=== PATIENT | female | born 2000 | race Caucasian/White ===

== ENCOUNTER 2021-07-08 10:33 | Emergency (ER) | payer OTHER, SELFPAY ==
[2021-07-08] VITALS (9 sets, daily range): BP systolic 96–119; BP diastolic 55–64; PULSE 88–108; RESP 16; TEMP 37.1; O2SAT 99–100
--- NOTE | 2021-07-08 11:30 | PC.NURSE ---
Pt reports that she is 12 weeks and has been nauseous for the past several weeks with the last week being significantly worse. She reports that she has been vomiting approximately 5 times per day. Reports that she has tried Reglan, Phenergan and Zofran. The Zofran does help the majority of the time but it has been less effective this past week. Denies vaginal bleeding. Does report intermittent cramping.
--- NOTE | 2021-07-08 11:46 | ED.GENADULT ---
HPI - General Adult General Chief complaint: Nausea/Vomiting/Diarrhea Stated complaint: vomiting/dizzy/12 weeks Time Seen by Provider: 07/08/21 10:47 Source: patient Mode of arrival: ambulatory Limitations: no limitations History of Present Illness HPI narrative: Patient presented to the ED with frequent vomiting since last night. Approximately 12-15 times so far. Patient denies any fever, chills, diarrhea or abdominal pain. Patient is 12 weeks and has been having intermittent vomiting since the beginning of , the vomiting since last night is more than usual. Patient denies vaginal bleeding or discharge. Related Data Home Medications Medication Instructions Recorded Confirmed metoclopramide HCl [Reglan] 10 mg PO Q6H PRN 07/08/21 ondansetron [Zofran ODT] 4 mg PO Q6H PRN 07/08/21 prenat.vits,sola,[id number] 1 tablet PO DAILY 07/08/21 [ Vitamin] promethazine [Phenergan] 12.5 mg PO QID PRN 07/08/21 Allergies Allergy/AdvReac Type Severity Reaction Status Date / Time Penicillins Allergy Unknown Unknown Verified 07/08/21 12:40 amoxicillin Allergy Unknown Verified 07/08/21 12:41 Review of Systems Review of Systems: CONSTITUTIONAL: Denies fever, chills, or sweats. EYES: Denies visual changes, redness, or discharge. ENT: Denies rhinorrhea, congestion, sore throat, or otalgia. CARDIOVASCULAR: Denies chest pain, palpitations, or edema. RESPIRATORY: Denies cough or dyspnea. GASTROINTESTINAL: Denies abdominal pain, nausea, vomiting, or diarrhea. GENITOURINARY: Denies dysuria or hematuria. SKIN: Denies rash or itching. MUSCULOSKELETAL: Denies back pain, joint pain, or myalgia. NEUROLOGIC: Denies headache, numbness, or weakness. PSYCHIATRIC: Denies anxiety or depression. Exam Narrative: General appearance: Well-developed, well-nourished Skin: Normal color Head: Normocephalic, nontraumatic Eyes: Clear conjunctiva ENT: Oropharynx normal, ears normal, nose normal Neck: Supple, nontender Chest and respiratory: Airway patent, no respiratory distress, no accessory muscle use Heart: Regular rate/rhythm Abdomen: Soft, nontender, no organomegaly, quiet bowel sounds Vascular: Normal peripheral pulses, normal capillary refill. 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 Symptoms improved almost 90%. Work-up did not show any sign of dehydration or electrolyte imbalance. Hyperemesis gravidarum is my concern. Patient to continue Zofran at home and to contact her EXPLORATION GEOLOGIST for evaluation. Vital Signs Vital signs: Vital Signs Temperature 37.1 C 07/08/21 10:43 Pulse Rate 108 H 07/08/21 10:43 Respiratory Rate 16 07/08/21 10:43 Blood Pressure 119/64 07/08/21 10:43 Pulse Oximetry 100 07/08/21 10:43 Temperature 37.1 C 07/08/21 10:43 Pulse Rate 88 07/08/21 11:52 Respiratory Rate 16 07/08/21 11:52 Blood Pressure 96/60 L 07/08/21 13:35 Pulse Oximetry 100 07/08/21 13:35 Medical Decision Making MDM Narrative Medical decision making narrative: Hyperemesis gravidarum, urinary tract infection Differential Diagnosis Differential Diagnosis: Hyperemesis gravidarum, urinary tract infection, electrolyte imbalance, dehydration Vital Signs Vital Signs: Vital Signs Temperature 37.1 C 07/08/21 10:43 Pulse Rate 108 H 07/08/21 10:43 Respiratory Rate 16 07/08/21 10:43 Blood Pressure 119/64 07/08/21 10:43 Pulse Oximetry 100 07/08/21 10:43 Temperature 37.1 C 07/08/21 10:43 Puls
[2021-07-08 11:52] LABS: Basophils Percent Auto 0.4 % (0.2-1.2); Eosinophils Absolute Auto 0.1 K/mm3 (0-0.3); Eosinophils Percent Auto 0.9 % (0-4.4); Hematocrit 35.1 % (37.0-47.0); Immature Granulocyte Absolute 0.01 K/mm3 (0.00-0.031); Immature Granulocyte Percent A 0.1 % (0-0.5); Lymphocytes Absolute Auto 1.34 K/mm3 (0.9-3.2); Mean Corpuscular HGB Conc 34.2 g/dl (32-36); Mean Corpuscular Hemoglobin 31.5 pg (26-34); Mean Corpuscular Volume 92.1 fl (80-100); Mean Platelet Volume 8.9 fl (7.4-10.4); Monocytes Absolute Auto 0.4 K/mm3 (0.1-0.6); Monocytes Percent Auto 6.3 % (2.6-8.5); Neutrophils Absolute Auto 5.2 K/mm3 (1.3-6.7); Neutrophils Percent Auto 73.3 % (45.5-73.1); Platelet Count Result 275 k/mm3 (150-375); Red Blood Count 3.81 M/mm3 (4.2-5.4); Red Cell Distribution Width 12.9 % (11.5-14.5)
[2021-07-08 11:55] LABS: Add Urine Microscopic? YES; Amorphous Sediment Urine Few; Appearance Urine Cloudy (Clear); Bacteria Urine Trace /hpf; Bilirubin Urine Negative (Negative); Blood Urine Negative (Negative); Color Urine Yellow (Yellow); Glucose Urine UA Negative (Negative); Ketones Urine Negative (Negative); Leukocyte Esterase Ur 1+ LEU/UL (Negative); Mucus Urine Rare /lpf; Nitrate Urine Negative (Negative); Protein Urine Negative (Negative); Squamous Epithelial Cell Urine Few /hpf (Few); Urobilinogen Urine Negative mg/dL (<2.0)
[2021-07-08] MEDS: ONDANSETRON INJ 4 MG/2 ML VIAL 8 MG IV PUSH (11:55)
[2021-07-08] MEDS: SODIUM CHLORIDE 0.9% IV 2,000 ML 999 ML IV CONT (11:56)
[2021-07-08 12:02] LABS: Alanine Aminotransferase 15 U/L (4-35); Albumin Level 4.5 g/dL (3.5-5.1); Alkaline Phosphatase 46 U/L (38-126); Anion Gap 4 mmol/L (8-16); Aspartate Amino Transferase 25 U/L (14-36); Bilirubin,Total 0.6 mg/dL (0.2-1.3); Blood Urea Nitrogen 6 mg/dL (7-17); Calcium 9.2 mg/dL (8.4-10.2); Carbon Dioxide 28 mmol/L (22-30); Chloride 103 mmol/L (98-107); Estimated CRCL calculation 116 ml/min; Estimated Glomerular Filt Rate > 60; Glucose 71 mg/dL (65-110); Lipase 103 U/L (23-300); Potassium 3.7 mmol/L (3.4-5.0); Sodium 135 mmol/L (137-145)
--- NOTE | 2021-07-08 13:40 | PC.NURSE ---
EDP back at bedside to reassess patient and discuss results. IVF continue to infuse as ordered. Awaiting disposition.
== END 2021-07-08 14:27 | disposition home or self-care (01) ==
PROVIDERS: Emergency Provider Emergency Medicine; PCP Physician Assistant
DX: O21.0 Mild hyperemesis gravidarum (principal); Z3A.12 12 weeks gestation of pregnancy
CPT/HCPCS: 36415; 80053; 81001; 83690; 85025; 96361; 96374; 99284; J2405; J7030

== ENCOUNTER 2022-01-22 12:42 | Inpatient (IN) | payer OTHER, MEDICAID, SELFPAY ==
[2022-01-22] VITALS (56 sets, daily range): BP systolic 61–143; BP diastolic 53–125; PULSE 72–254; TEMP 36.3–36.8; O2SAT 99–100; BMI 30.8
--- NOTE | 2022-01-22 11:54 | P.HP_ITS ---
H&P: HPI History of Present Illness Date/Time: 01/22/22 11:54 Chief Complaint: Induction of labor at term Narrative: 21-year-old 1 para 0 with last menstrual period was 04/14/2020, EDC is 01/09/2022, confirmed a 10 week ultrasound presents at 40 weeks gestation for induction of labor. has been uncomplicated. She has a negative group B strep screen. COUNT INCLUDES THE [facility] Family History Family History Grandparent Breast cancer Social History Social History Substance use: never Spiritual care concerns: No Meds Home Medications and Allergies Home Medications Medication Instructions Recorded Confirmed Type metoclopramide HCl 10 mg tablet 10 mg PO Q6H PRN Nausea 07/08/21 History (Reglan) ondansetron 4 mg disintegrating 4 mg PO Q6H PRN Nausea 07/08/21 History tablet prenat.vits,sola,dsg-[id number] 1 tablet PO DAILY 07/08/21 History promethazine 12.5 mg tablet 12.5 mg PO QID PRN Nausea 07/08/21 History prenat.vits,sola,dbb-npvz-ijxyh 1 tablet PO DAILY 12/19/21 12/19/21 History Allergies Allergy/AdvReac Type Severity Reaction Status Date / Time amoxicillin Allergy Hives Verified 01/09/22 09:28 Penicillins Allergy Hives Verified 01/09/22 09:28 Exam Const: General: cooperative, healthy appearing and comfortable Nutritional Appearance: average body habitus Chest: Chest palpation & inspection: normal inspection of the chest Resp: Effort & Inspection: normal respiratory effort Cardio: Rate: regular rate Rhythm: regular rhythm Heart sounds: S1 normal heart sound present and S2 normal heart sound present GI: Inspection: normal to inspection Auscultation: normal bowel sounds : External Female Exam: normal external appearance Speculum Exam - Vagina: normal appearance of the vagina Bimanual exam- vagina & uterus: enlarged Assessment and Plan Assessment and plan (1) Term : Code(s): Z34.90 - Encounter for supervision of normal , unspecified, unspecified trimester Status: Acute Plan medical loss of labor spontaneous vaginal delivery is expected. She has an epidural and
--- NOTE | 2022-01-22 12:42 | LDADM ---
This patient, Judith Soto, was admitted to Labor/Delivery/Recovery 107 on 01/22/22 at 12:42. Plans for labor, pain management and were discussed with patient. Patient/family oriented to hospital policies and general routines including ID bracelet, bed and alarms, visiting hours, pain management, procedures, bathroom and other care routines, personal items, smoking policy, room service/diet and guest tray routines, infant security routines, and visiting hours. Patient/Family are encouraged to report perceived risks to care and to ask questions if they do not understand what they are told or what they should do. See OBIX for further documentation.
[2022-01-22] MEDS: OXYTOCIN 30 UNITS/NS 500 ML 30 UNITS/500 ML BAG 6 UNITS IV CONT (13:33)
[2022-01-22] MEDS: LACTATED RINGERS 1,000 ML 125 ML IV CONT ×3 (13:34→20:23)
[2022-01-22 13:41] LABS: Basophils Percent Auto 0.3 % (0.2-1.2); Eosinophils Absolute Auto 0.2 K/mm3 (0-0.3); Eosinophils Percent Auto 2.9 % (0-4.4); Hematocrit 34.3 % (37.0-47.0); Hemoglobin 11.6 g/dL (12.0-15.0); Immature Granulocyte Absolute 0.04 K/mm3 (0.00-0.031); Immature Granulocyte Percent A 0.5 % (0-0.5); Lymphocytes Absolute Auto 1.33 K/mm3 (0.9-3.2); Lymphocytes Percent Auto 17.6 % (18.3-44.2); Mean Corpuscular HGB Conc 33.8 g/dl (32-36); Mean Corpuscular Hemoglobin 32.5 pg (26-34); Mean Corpuscular Volume 96.1 fl (80-100); Mean Platelet Volume 10.4 fl (7.4-10.4); Monocytes Absolute Auto 0.6 K/mm3 (0.1-0.6); Monocytes Percent Auto 8.4 % (2.6-8.5); Neutrophils Absolute Auto 5.3 K/mm3 (1.3-6.7); Neutrophils Percent Auto 70.3 % (45.5-73.1); Platelet Count Result 203 k/mm3 (150-375); Red Blood Count 3.57 M/mm3 (4.2-5.4); Red Cell Distribution Width 13.2 % (11.5-14.5); White Blood Count 7.5 K/mm3 (4.5-10.0)
--- NOTE | 2022-01-22 15:51 | PM.OBPNLAB ---
Pain Control Date/time seen: 01/22/22 15:51 Pain control: tolerating well Pelvic Exam Dilation (cm): 4
--- NOTE | 2022-01-22 17:09 | WPDANESEPPF ---
Anes - Initial Pre Proc Eval Procedure: labor epidural Date/Time: 01/22/22 17:09 Surgeon: Ronald Couch MD Pre Op Diagnosis: labor pain Pre Op Diagnosis: iol Patient Data Age: 21 Gender: F Height: 1.57 m Weight: 76.5 kg Last Vital Signs Temp 36.8 C 01/22/22 14:00 Pulse 87 01/22/22 17:05 BP 125/74 01/22/22 17:05 Pulse Ox 100 01/22/22 17:07 O2 Del Method Room Air 01/22/22 13:10 Allergies Allergy/AdvReac Type Severity Reaction Status Date / Time amoxicillin Allergy Hives Verified 01/09/22 09:28 Penicillins Allergy Hives Verified 01/09/22 09:28 Home Medications Medication Instructions Recorded Confirmed Type metoclopramide HCl 10 mg tablet 10 mg PO Q6H PRN Nausea 07/08/21 History (Reglan) ondansetron 4 mg disintegrating 4 mg PO Q6H PRN Nausea 07/08/21 History tablet prenat.vits,sola,ycl-tclf-qpitz 1 tablet PO DAILY 07/08/21 History promethazine 12.5 mg tablet 12.5 mg PO QID PRN Nausea 07/08/21 History prenat.vits,sola,fwc-tfsp-govbq 1 tablet PO DAILY 12/19/21 12/19/21 History Laboratory Tests 01/22/22 01/22/22 01/22/22 13:30 13:30 13:30 WBC 7.5 K/mm3 K/mm3 (4.5-10.0) RBC 3.57 M/mm3 L M/mm3 (4.2-5.4) Hgb 11.6 g/dL L g/dL (12.0-15.0) Hct 34.3 % L % (37.0-47.0) MCV 96.1 fl fl (80-100) MCH 32.5 pg pg (26-34) MCHC 33.8 g/dl g/dl (32-36) RDW 13.2 % % (11.5-14.5) Plt Count 203 k/mm3 k/mm3 (150-375) MPV 10.4 fl fl (7.4-10.4) Immature Gran % (Auto) 0.5 % % (0-0.5) Neut % (Auto) 70.3 % % (45.5-73.1) Lymph % (Auto) 17.6 % L % (18.3-44.2) [place] % (Auto) 8.4 % % (2.6-8.5) Eos % (Auto) 2.9 % % (0-4.4) Baso % (Auto) 0.3 % % (0.2-1.2) Lymph # (Auto) 1.33 K/mm3 K/mm3 (0.9-3.2) [place] # (Auto) 0.6 K/mm3 K/mm3 (0.1-0.6) Eos # (Auto) 0.2 K/mm3 K/mm3 (0-0.3) Baso # (Auto) 0.0 K/mm3 K/mm3 (0.0-0.1) Abs Immat Gran (auto) 0.04 K/mm3 H K/mm3 (0.00-0.031) Absolute Neuts (auto) 5.3 K/mm3 K/mm3 (1.3-6.7) Absolute Nucleated RBC 0.0 K/mm3 K/mm3 (0.0-0.012) Nucleated RBC % 0.0 % % (0.0-0.2) RPR Pending Blood Type A Positive Antibody Screen Negative Patient hx anesthesia problems: none Family hx anesthesia problems: none Results Review: All pre-operative results and documents have been reviewed as part of the pre-operative evaluation. [facility] Family History Family History Grandparent Breast cancer Social History Social History Smoking status: Never smoker Second hand tobacco smoke exposure: Yes Substance use: never Spiritual care concerns: No Anes - Eval Final PreProcedure Day of Procedure 01/22/22 17:09 Patient weight: obese ASA classification: II Anesthetic plan: proceed Anesthesia type and monitoring: regional epidural and standard monitoring Results Review: All pre-operative results and documents have been reviewed as part of the pre-operative evaluation. Informed Consent: The patient's anesthetic plan and its attendant risks and benefits were discussed with the patient/family/POA. Questions were solicited and answers provided to the satisfaction of the patient/family/POA.
[2022-01-22] MEDS: LORATADINE 10 MG TABLET PO (19:40)
[2022-01-22] MEDS: CALCIUM CARBONATE (TUMS) 500 MG (200 MG ELEMENTAL) (22:24)
[2022-01-23] VITALS (19 sets, daily range): BP systolic 97–153; BP diastolic 51–98; PULSE 74–108; RESP 16–18; TEMP 36.1–36.7; O2SAT 99–100
--- NOTE | 2022-01-23 00:12 | PM.OBPRVD ---
OB - Delivery Note Procedure Delivery date: 01/23/22 Induction method: AROM Delivery augmentation: Pitocin Delivery monitor: External FHT and Internal Uterine Route of delivery: Episiotomy description: None Laceration Description: Perineal - 2nd Degree Delivery repair: vicryl Specimen: No Quantitative Blood Loss (ml): 159 Anesthesia type: Epidural Disposition: Floor [place] Baby Date of : 01/23/22 Time of : 23:56 Weeks of gestation at delivery: 40 gender: Male Weight (pounds): 8 Weight (ounces): 12 presentation: vertex position: Right Occiput Anterior Placenta delivery description: Spontaneous Cord Vessel Description: 3 Vessels score one minute: 8 score five minutes: 9
--- NOTE | 2022-01-23 00:15 | PM.OBPRVD ---
OB - Delivery Note Procedure Delivery date: 01/23/22 Induction method: AROM Delivery augmentation: Pitocin Delivery monitor: External FHT and Internal Uterine Route of delivery: Episiotomy description: None Laceration Description: Perineal - 2nd Degree Quantitative Blood Loss (ml): 159 Anesthesia type: Epidural Disposition: Floor Baby Date of : 01/23/22 Time of : 23:56 Weeks of gestation at delivery: 40 Infant gender: Male Weight (pounds): 8 Weight (ounces): 12 presentation: vertex position: Right Occiput Anterior Placenta delivery description: Spontaneous Cord Vessel Description: 3 Vessels score one minute: 8 score five minutes: 9
[2022-01-23] MEDS: OXYTOCIN 30 UNITS/NS 500 ML 30 UNITS/500 ML BAG 125 UNITS IV CONT ×2 (00:30→01:32)
[2022-01-23] MEDS: METHYLERGONOVINE MALEATE 0.2 MG/ML VIAL IM (01:55)
[2022-01-23] MEDS: ONDANSETRON INJ 4 MG/2 ML VIAL IV PUSH (03:28)
[2022-01-23] MEDS: ACETAMINOPHEN 325 MG TABLET 650 MG PO ×3 (03:29→17:15)
[2022-01-23] MEDS: IBUPROFEN 600 MG TABLET PO ×2 (06:08→15:31)
[2022-01-23] MEDS: BENZOCAINE 20% AER SPR (*SP) 56 GM CAN 1 SPRAY TOPICAL (06:09)
[2022-01-23] MEDS: WITCH HAZEL 40 PADS 1 PAD TOPICAL (06:09)
--- NOTE | 2022-01-23 06:17 | PM.OBPNVD ---
OB - PN: Subj Subjective Date/time seen: 01/23/22 06:17 Patient comments: no complaints and pain well controlled baby status: doing well and nursing well OB - PN: Obj Data Labs CBC & Chem 7: 01/22/22 13:30 Labs: Laboratory Results - last 24 hr 01/22/22 01/22/22 13:30 13:30 WBC 7.5 RBC 3.57 L Hgb 11.6 L Hct 34.3 L MCV 96.1 MCH 32.5 MCHC 33.8 RDW 13.2 Plt Count 203 MPV 10.4 Immature Gran % (Auto) 0.5 Neut % (Auto) 70.3 Lymph % (Auto) 17.6 L [place] % (Auto) 8.4 Eos % (Auto) 2.9 Baso % (Auto) 0.3 Lymph # (Auto) 1.33 [place] # (Auto) 0.6 Eos # (Auto) 0.2 Baso # (Auto) 0.0 Abs Immat Gran (auto) 0.04 H Absolute Neuts (auto) 5.3 Absolute Nucleated RBC 0.0 Nucleated RBC % 0.0 Blood Type A Positive Antibody Screen Negative OB - PN A/P Plan day: 1 Plan: routine care Time Spent With Patient Time: Total time spent is greater than 50% in coordination of care (as documented) at patient's floor/unit and/or counseling patient: Time with patient: less than 15 minutes
[2022-01-23 06:29] LABS: Hematocrit 33.9 % (37.0-47.0); Hemoglobin 11.2 g/dL (12.0-15.0)
[2022-01-23] MEDS: DOCUSATE SODIUM 100 MG CAPSULE PO ×2 (09:31→17:13)
--- NOTE | 2022-01-23 12:47 | WPDANLDPN2 ---
Anes-Prog Note L&D Date/Time: 01/23/22 12:47 Neuro status: Neuro function grossly intact. Cardiovascular status: normal Respiratory status: normal Airway patency: baseline Mental status: baseline Post-Op hydration status: normal Vital Signs: Last Vital Signs Temp 36.2 C L 01/23/22 12:25 Pulse 78 01/23/22 12:25 Resp 16 01/23/22 12:25 BP 104/58 L 01/23/22 12:25 Pulse Ox 99 01/23/22 12:25 O2 Del Method Room Air 01/23/22 04:30 Pain score (VAS): 2 I/O: Intake & Output 01/22/22 01/23/22 01/23/22 23:59 07:59 15:59 Intake Total 2000 500 Output Total 1000 Balance 2000 -500 Post-procedural complaints: none Patient feedback: Patient satisfied with anesthetic care.
[2022-01-23 15:52] LABS: Rapid Plasma Reagin Non-Reactive (NonReactive)
[2022-01-23] MEDS: methylPREDNISolone (MEDROL) DOSEPACK 4 MG TABLETS PO ×4 (20:12→20:14)
[2022-01-24] MEDS: IBUPROFEN 600 MG TABLET PO (01:43)
--- NOTE | 2022-01-24 06:25 | PM.OBPNVD ---
OB - PN: Subj Subjective Date/time seen: 01/24/22 06:25 Patient comments: no complaints and pain well controlled baby status: doing well OB - PN: Obj Data Labs CBC & Chem 7: 01/23/22 05:55 Labs: Laboratory Results - last 24 hr 01/22/22 01/23/22 13:30 05:55 Hgb 11.2 L Hct 33.9 L RPR Non-reactive OB - PN A/P Plan day: 1 Plan: routine care Time Spent With Patient Time: Total time spent is greater than 50% in coordination of care (as documented) at patient's floor/unit and/or counseling patient: Time with patient: less than 15 minutes
--- NOTE | 2022-01-24 06:29 | PM.DS ---
DS: Admitting Diagnosis Discharge Date 01/24/2022 Admitting Diagnosis term DS: Discharge Diagnosis Discharge Diagnosis (1) Term : Code(s): Z34.90 - Encounter for supervision of normal , unspecified, unspecified trimester Status: Acute DS: Summary Hospital Course Reason for hospitalization: patient was admitted for induction of labor at term Hospital Course: patient underwent spontaneous vaginal delivery. Her 48hour course was unremarkable. She remained afebrile. She was up, voiding without difficulty, ambulating, generally without complaints. Routine discharge instructions were given Time Spent with Patient Time attestation: Total time spent providing and/or coordinating discharge services: DS: Data Data Completed and Pending Labs on day of discharge: Labs from last 24 hours 01/23/22 01/22/22 05:55 13:30 Hgb 11.2 L Hct 33.9 L RPR Non-reactive Discharge Plan Discharge Attending physician on discharge: Ronald Camarena Discharging Clinician: Ronald Camarena Patient Disposition: Home, Self-Care Activity: may shower, no straining and pelvic rest Diet: heart healthy Wound Care Instructions: follow printed instructions Patient Instructions: Antibiotic Form Stand Alone Forms: General Discharge Information Follow-up/Referrals: Ronald Camarena MD [Physician] - Discharge Medications: Continued promethazine [Phenergan] 12.5 mg Tablet 12.5 mg PO QID PRN (Reason: Nausea) ondansetron [Zofran ODT] 4 mg Tablet,Disintegrating 4 mg PO Q6H PRN (Reason: Nausea) metoclopramide HCl [Reglan] 10 mg Tablet 10 mg PO Q6H PRN (Reason: Nausea) Vitamin Tablet 1 tablet PO DAILY #2 Tablet 1 tablet PO DAILY Date of admission: 01/22/22 12:42 Primary Care Provider: ApolinarJune Admitting Provider: Ronald Camarena Attending physician on admission: Ronald Camarena Condition: Stable
[2022-01-24 08:50] VITALS: BP 117/70; PULSE 68; RESP 18; TEMP 36.8; O2SAT 100
[2022-01-24] MEDS: methylPREDNISolone (MEDROL) DOSEPACK 4 MG TABLETS PO (09:38)
[2022-01-24] MEDS: DOCUSATE SODIUM 100 MG CAPSULE PO (09:38)
--- NOTE | 2022-01-24 11:30 | PC.NURSE ---
Patient viewed the discharge video Mother & Baby Care, The First Two Weeks . Patient was given the opportunity and encouraged to ask questions. Patient verbalized understanding of information shared and has been given the mother/baby guide for home reference.
[2022-01-27 10:51] VITALS: BP 120/75; PULSE 86; RESP 20; TEMP 37.4; O2SAT 99
== END 2022-01-24 13:18 | disposition home or self-care (01) | DRG 807 ==
LOC: ANHLDR 12:45 → ANHOB2 01-23 03:53
PROVIDERS: Admitting Provider Obstetrics & Gynecology; PCP Physician Assistant; Visit Provider Obstetrics & Gynecology
DX: O69.81X0 Labor and delivery complicated by cord around neck, without compression, not applicable or unspecified (principal); Z37.0 Single live birth; O70.1 Second degree perineal laceration during delivery; Z3A.40 40 weeks gestation of pregnancy
CPT/HCPCS: 36415; 85014; 85018; 85025; 86592; 86850; 86900; 86901; A9270; J2210; J2405; J2590; J2795; J7120

== ENCOUNTER 2023-05-03 09:55 | Outpatient (CLI) | payer OTHER, SELFPAY ==
--- NOTE | ~2023-05-03 | XR_ITS ---
EXAM: XR lumbar spine 2-3V DATE: 05/03/2023 10:18 HISTORY: LOW BACK PAIN . COMPARISON: None available. FINDINGS: Mild spinal asymmetry. Lateral view and sacral spot view limited by rotation of the hips. 5 nonrib-bearing lumbar-type vertebral bodies. Pedicles intact. Normal vertebral body alignment. Verte bral body heights preserved. Disc spaces maintained. Normal facets and posterior elements. No fractur e or dislocation. IMPRESSION: Unremarkable lumbar spine radiograph findings. Reviewed, dictated and finalized at location K. [employer] HAND[employer]
== END 2023-05-03 09:56 | disposition home or self-care (01) ==
PROVIDERS: PCP Physician Assistant; Visit Provider Physician Assistant
DX: M54.50 Low back pain, unspecified (principal)
CPT/HCPCS: 72100